=== PATIENT | male | born 1990 | race Caucasian/White ===

== ENCOUNTER 2016-07-18 18:50 | Emergency (ER) | payer OTHER ==
[2016-07-18 18:51] VITALS: BP 130/72; PULSE 76; RESP 20; TEMP 98.4; O2SAT 97
[2016-07-18] MEDS ORDERED: ROBA500T PO (19:08)
[2016-07-18] MEDS ORDERED: LISI-515 PO (19:08)
[2016-07-18] MEDS ORDERED: LEXA5TAB PO (19:08)
[2016-07-18] MEDS ORDERED: SUBO8MIS SL (19:10)
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
--- NOTE | 2016-07-18 19:37 | RADRPT ---
EXAM DATE/TIME: 07/18/2016 19:26 [facility] COMPARISON: No previous studies available for comparison. INDICATIONS : Right hand pain, injured playing ball MEDICAL HISTORY : None. SURGICAL HISTORY : None. ENCOUNTER: Initial ACUITY: 1 week PAIN SCORE: 6/10 LOCATION: Right Hand FINDINGS: There is an oblique midshaft fracture of the right fourth metacarpal. There is approximately 4 mm of dorsal displacement and a mild degree of palmar angulation deformity. Articular surfaces are not invo lved. There are no subluxations. CONCLUSION: Mildly displaced and angulated oblique mid shaft fracture of the fourth metacarpal. Rehan Lyons MD on July 18, 2016 at 19:34 Board Certified Radiologist. This report was verified electronically.
[2016-07-18] MEDS ORDERED: IBUP800T23 PO (19:42)
== END 2016-07-18 20:23 | disposition home or self-care (01) ==
LOC: NEPK 18:50
DX: S62.324A Displaced fracture of shaft of fourth metacarpal bone, right hand, initial encounter for closed fracture (principal); V19.3XXA Pedal cyclist (driver) (passenger) injured in unspecified nontraffic accident, initial encounter; Y93.55 Activity, bike riding
CPT/HCPCS: 29105; 73130

== ENCOUNTER 2016-07-26 20:26 | Emergency (ER) | payer OTHER ==
[~2016-07-26] VITALS: Ht 177.8 cm; Wt 79.0 kg
[~2016-07-26 20:26] MED LIST: IBUP800T23 PO; LEXA5TAB PO; LISI-515 PO; ROBA500T PO; SUBO8MIS SL
[2016-07-26 20:27] VITALS: BP 133/85; PULSE 85; RESP 16; TEMP 97.8; O2SAT 96
--- NOTE | 2016-07-26 20:50 | PD ---
HPI Chief Complaint: Injury Time Seen by Provider: 20:45 Travel History International Travel<30 days: No Contact w/Intl Traveler<30days: No Traveled to known affect area: No History of Present Illness HPI 25-year-old [id number] white male presents to emergency department stating that he took his splint off last night. He states that he did not feel he was fitting properly and felt it was uncomfortable so he took it off. He presents today because now he realizes he must be in a splint after having a fracture hand. The patient has not made contact with an orthopedic hand surgeon as of yet. He states that he does have a name and phone number but has not called them yet. He plans on calling in the morning. This is an injury that has occurred nearly 2-3 weeks ago. He was initially seen in the ER on 07/18. No numbness or tingling. Pain is mild. PFSH Past Medical History Narrative Medical Right fourth metacarpal fracture, substance abuse, Crohn's, hypertension Diminished Hearing: No Gastrointestinal Disorders: Yes (CROHN'S DISEASE) Hypertension: Yes Past Surgical History Narrative Surgical Testicular torsion repair, cholecystectomy Cholecystectomy: Yes Other Surgery: Yes (TESTICULAR TORSION REPAIR) Social History Alcohol Use: No Tobacco Use: No Substance Use: No Allergies-Medications (Allergen,Severity, Reaction): Coded Allergies: Penicillin (Verified Allergy, Severe, 07/26/16) Reported Meds & Prescriptions Reported Meds & Active Scripts Active Ibuprofen 800 Mg Tab 800 Mg PO Q8H PRN Reported Suboxone Sublingual Film (Buprenorphine-Naloxone Sublingual Film) 8-2 Mg Film 4 Film SL DAILY Unique ID number required: Robaxin (Methocarbamol) 500 Mg Tab 500 Mg PO TID Lexapro (Escitalopram Oxalate) 5 Mg Tab 5 Mg PO DAILY Lisinopril 20 Mg Tab 20 Mg PO DAILY Review of Systems Except as stated in HPI: all other systems reviewed are Neg Physical Exam Narrative GENERAL: This is a well-nourished, well-developed patient, in no apparent distress. SKIN: No rashes, ecchymoses or lesions. Warm and dry. HEAD: Atraumatic. Normocephalic. EYES: PERRL, EOMI, no discharge or injection. No scleral icterus. EARS: Clear NOSE: Nasal turbinates appear normal. THROAT: Mucosa pink and moist. Airway patent. NECK: Trachea midline. supple, moves head freely. LUNGS: Clear to auscultation. CV: Regular in rhythm. ABDOMEN: Soft nontender. EXT: No clubbing cyanosis. Examination of the right hand reveals only trace edema over the lateral temi. The skin is intact. He is able to fully extend and flex his fingers. He does have a deformity/shortening of the fourth metacarpal when he makes a fist. He has intact sensation with good Refill. He has only mild discomfort over the fourth metacarpal. No pain in the fingers or wrist. Data Data Last Documented VS Vital Signs Date Time Temp Pulse Resp B/P Pulse Ox O2 Delivery O2 Flow Rate FiO2 07/26/16 20:27 97.8 85 16 133/85 96 Room Air Orders Splint Or Brace Apply/Monitor (07/26/16 20:44) MDM Medical Decision Making Medical Screen Exam Complete: Yes Emergency Medical Condition: No Medical Record Reviewed: Yes Differential Diagnosis MDM: High Differential diagnoses: Fracture, sprain, strain, dislocation, contusion, neurovascular injury Narrative Course I reviewed the patient's prior medical record and reviewed his x-ray personally. The patient is placed back into a ulnar gutter splint. He's strongly encouraged to follow-up with a hand surgeon as soon as possible. He is made aware that there is a good chance that the patient will require ORIF to maintain proper alignment and healing. Patient verbally states understanding and states that he'll see in doctor as soon as possible. He will call on Tuesday. Patient's place in an ulnar gutter splint Diagnosis Primary Impression: Fracture of fourth metacarpal bone of right hand Patient Instructions: General Instructions Additional Instructions: Rest. Elevation. Keep your splint on and clean and dry. Contact an orthopedic hand surgeon tomorrow morning. Continued 800 mg of ibuprofen 3 times daily for any acute swelling and pain. Return to the ER for emergencies. Med/Other Pt SpecificInfo: Orthopedic Instructions Disposition: 01 DISCHARGE HOME Condition: Stable Glen Pizano July 26, 2016 20:50
== END 2016-07-26 21:35 | disposition home or self-care (01) ==
LOC: NEPK 20:26
DX: S62.304A Unspecified fracture of fourth metacarpal bone, right hand, initial encounter for closed fracture (principal); X58.XXXA Exposure to other specified factors, initial encounter
CPT/HCPCS: 29125